=== PATIENT | female | born 1965 | race Caucasian/White ===

== ENCOUNTER → 2024-05-15 13:33 | Outpatient (REF) | payer BC, MEDICARE, SELFPAY ==
[2024-05-15 15:55] LABS: % Basophils 0.5 % (0-2); % Eosinophils 1.2 % (0-6); % Immature Granulocytes 0.5 % (0-0.5); % Lymphocytes 22.4 % (20.5-51.1); % Monocytes 4.6 % (1.7-9.3); % Neutrophils 70.8 % (42.2-75.2); Absolute Eosinophils 0.1 10^3/uL (0-0.7); Absolute Lymphocytes 1.9 10^3/uL (1.2-3.4); Absolute Monocytes 0.4 10^3/uL (0.1-0.6); Absolute Neutrophils 5.9 10^3/uL (1.4-6.5); Hematocrit 42.8 % (37.0-47.0); Hemoglobin 14.6 g/dL (12.0-16.0); Mean Corp Hgb Conc. 34.1 g/dL (33.0-37.0); Mean Corpuscular Hgb 33.2 pg (27.0-31.0); Mean Corpuscular Volume 97.3 fL (81.0-99.0); Mean Platelet Volume 10.5 fL (7.4-10.4); Nucleated Red Blood Cells % 0 %; Platelet Count 264 10^3/uL (130-400); Red Cell Dist. Width 13.5 % (11.5-14.5); White Blood Cell Count 8.4 10^3/uL (4.8-10.8)
[2024-05-15 16:19] LABS: Blood Urea Nitrogen 17 mg/dl (7-17); Carbon Dioxide 24 mmol/L (22-30); Chloride 104 mmol/L (98-107); Glucose 115 mg/dl (70-99); Sodium 142 mmol/L (135-145); eGFR > 60.00
[2024-05-15 16:35] LABS: Progesterone 0.84 ng/ml
[2024-05-15 16:36] LABS: Free T3 2.92 pg/ml (2.77-5.27)
[2024-05-15 16:49] LABS: TSH 1.12 uIU/ml (0.47-4.68)
[2024-05-15 16:51] LABS: Testosterone, Total 26.7 ng/dl
[2024-05-18 01:07] LABS: DHEA Sulfate 86 ug/dL (19-205)
== END ==
LOC: REG 13:33
PROVIDERS: ATTENDING PHYSICIAN Orthopaedic Surgery; FAMILY PHYSICIAN Internal Medicine; OTHER PHYSICIAN Pediatrics
DX: Z01.818 Encounter for other preprocedural examination (principal); Z04.9 Encounter for examination and observation for unspecified reason; E03.9 Hypothyroidism, unspecified; F52.1 Sexual aversion disorder; Z13.29 Encounter for screening for other suspected endocrine disorder; R68.89 Other general symptoms and signs; F06.8 Other specified mental disorders due to known physiological condition; R53.83 Other fatigue
CPT/HCPCS: 36415; 80048; 82627; 82671; 84144; 84403; 84443; 84481; 85025; 93005

== ENCOUNTER → 2025-03-02 08:38 | Outpatient (REF) | payer BC, MEDICARE, SELFPAY ==
[2025-03-02 10:00] LABS: % Basophils 0.5 % (0-2); % Eosinophils 1.2 % (0-6); % Immature Granulocytes 0.3 % (0-0.5); % Lymphocytes 19.9 % (20.5-51.1); % Monocytes 5.4 % (1.7-9.3); % Neutrophils 72.7 % (42.2-75.2); Absolute Basophils 0.1 10^3/uL (0-0.2); Absolute Eosinophils 0.1 10^3/uL (0-0.7); Absolute Lymphocytes 1.9 10^3/uL (1.2-3.4); Absolute Monocytes 0.5 10^3/uL (0.1-0.6); Hematocrit 44.6 % (37.0-47.0); Hemoglobin 15.2 g/dL (12.0-16.0); Mean Corp Hgb Conc. 34.1 g/dL (33.0-37.0); Mean Corpuscular Hgb 32.5 pg (27.0-31.0); Mean Corpuscular Volume 95.3 fL (81.0-99.0); Nucleated Red Blood Cells % 0 %; Platelet Count 272 10^3/uL (130-400); Red Blood Cell Count 4.68 10^6/uL (4.20-5.40); Red Cell Dist. Width 13.3 % (11.5-14.5); White Blood Cell Count 9.6 10^3/uL (4.8-10.8)
[2025-03-02 10:23] LABS: Blood Urea Nitrogen 18 mg/dl (7-17); Calcium 10.2 mg/dl (8.4-10.2); Carbon Dioxide 24 mmol/L (22-30); Chloride 108 mmol/L (98-107); Glucose 103 mg/dl (70-99); Potassium 4.4 mmol/L (3.5-5.1); Sodium 140 mmol/L (135-145); eGFR > 60.00
== END ==
LOC: RAD 08:38
PROVIDERS: ATTENDING PHYSICIAN Orthopaedic Surgery; FAMILY PHYSICIAN Family Medicine
DX: R60.0 Localized edema (principal); M79.606 Pain in leg, unspecified; Z01.818 Encounter for other preprocedural examination
CPT/HCPCS: 36415; 80048; 85025; 93005; 93971

== ENCOUNTER → 2025-06-14 13:18 | Outpatient (REF) | payer BC, MEDICARE, SELFPAY ==
[2025-06-14 15:21] LABS: Vitamin D, 25-OH*** 44.6 ng/mL (30-80)
[2025-06-14 15:24] LABS: Free T3 4.01 pg/ml (2.77-5.27)
[2025-06-14 15:35] LABS: TSH 2.16 uIU/ml (0.47-4.68)
== END ==
LOC: REG 13:18
PROVIDERS: ATTENDING PHYSICIAN Pediatrics; FAMILY PHYSICIAN Internal Medicine
DX: Z04.9 Encounter for examination and observation for unspecified reason (principal); E03.9 Hypothyroidism, unspecified; E55.9 Vitamin D deficiency, unspecified; Z13.228 Encounter for screening for other metabolic disorders; Z13.29 Encounter for screening for other suspected endocrine disorder; F06.8 Other specified mental disorders due to known physiological condition; R53.83 Other fatigue; R68.89 Other general symptoms and signs
CPT/HCPCS: 36415; 82306; 82627; 82671; 84144; 84403; 84443; 84481